=== PATIENT | male | born 1980 | race Two or more races ===

== ENCOUNTER 2020-06-27 05:44 | Emergency (ER) | payer OTHER ==
[~2020-06-27] VITALS: Ht 170.2 cm; Wt 117.9 kg
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
--- NOTE | 2020-06-27 06:24 | NUR ---
[employer] AT BEDSIDE
--- NOTE | 2020-06-27 06:28 | NUR ---
BROUGHT BY RADIOLOGY TO CT
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
--- NOTE | 2020-06-27 08:37 | NUR ---
CALLED [facility] [phone] VSS UPDATED P71 98% YARITZA MILLER WILL CALL US BACK.
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
--- NOTE | 2020-06-27 09:26 | NUR ---
YARITZA CALLED DR. MARTIN SPEAKING WITH DR. CHIN ACCEPTED TO [facility].
--- NOTE | 2020-06-27 09:30 | NUR ---
[facility] CALLED, PT ACCEPTED TO [facility] UNDER DR. NAVA CALL [phone] FOR REPORT. [facility] TRAN[facility]ORT ETA 1020
--- NOTE | 2020-06-27 09:58 | NUR ---
COVID NEGATIVE RESULT
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
--- NOTE | 2020-06-27 10:14 | NUR ---
PATIENT A/OX4, BREATHING EVEN AND UNLABORED, APPLIED LEFT EYE COVER FOR SAFETY.
[2020-06-27 10:26] VITALS: BP 114/62
--- NOTE | 2020-06-27 10:26 | NUR ---
PATIENT TRANSFERRED TO [facility], IN STABLE CONDITION. LEFT EYE SHIELD INTACT.
== END 2020-06-27 10:27 | disposition short-term general hospital (02) ==
LOC: ER 05:46
DX: S02.832A Fracture of medial orbital wall, left side, initial encounter for closed fracture (principal); S05.32XA Ocular laceration without prolapse or loss of intraocular tissue, left eye, initial encounter; S04.012A Injury of optic nerve, left eye, initial encounter; S06.890A Other specified intracranial injury without loss of consciousness, initial encounter; X58.XXXA Exposure to other specified factors, initial encounter; Y93.89 Activity, other specified; Y92.89 Other specified places as the place of occurrence of the external cause; E11.9 Type 2 diabetes mellitus without complications; G93.0 Cerebral cysts
CPT/HCPCS: 70450; 87426; 99285; C9803